=== PATIENT | female | born 1995 | race Caucasian/White ===

== ENCOUNTER → 2021-01-20 16:08 | Outpatient (CLI) | payer OTHER, SELFPAY ==
[2021-01-20 14:35] VITALS: BMI 29.3
[2021-01-20 16:47] LABS: Absolute Lymphocyte Count 2.28 X10^3/uL (0.83-4.51); Absolute Neutrophil Count 5.8 X10^3/uL (2.0-7.7); Basophil# 0.04 X10^3/uL; Basophil% 0.4 % (0-1); Eosinophil# 0.48 X10^3/uL; Eosinophils% 5.1 % (0-5); Hematocrit 38.7 % (37-47); Hemoglobin 13.1 g/dL (12.0-15.0); Lymphocyte # 2.28 X10^3/ul (0.83-4.51); Lymphocyte % 24.4 % (19-41); Mean Corp Hgb Conc 33.9 g/dL (32-36); Mean Corpuscular Volume 85.8 fL (81-99); Mean Platelet Vol. 9.7 fl (6.2-12.0); Monocyte# 0.74 X10^3/uL; Monocyte% 7.9 % (0-10); NRBC Flagged by Analyzer 0 % (0-5); Neutrophil # 5.78 X10^3/uL (2.7-7.7); Neutrophil % 61.9 % (47-70); Platelet Count 250 K/mm3 (150-450); RBC Distribution Width CV 12.5 % (11.6-14.6); RBC Distribution Width SD 39.2 fl (35.1-43.9); Red Blood Count 4.51 M/mm3 (4.2-5.4); White Blood Count 9.4 K/mm3 (4.4-11.0)
[2021-01-21 16:33] LABS: HIV - WCH Non-Reactive (Nonreactive); Hepatitis B Surface Antigen Non-Reactive (Nonreactive); Hepatitis C Antibody Non-Reactive (Nonreactive); Rubella IgG Reactive (Nonreactive); Syphilis Antibodies Non-reactive
== END ==
PROVIDERS: PCP Family Medicine; Referring Provider Obstetrics & Gynecology; Visit Provider Obstetrics & Gynecology
DX: Z34.00 Encounter for supervision of normal first pregnancy, unspecified trimester (principal)
CPT/HCPCS: 36415; 85025; 86703; 86762; 86780; 86803; 86850; 86900; 86901; 87340

== ENCOUNTER → 2021-01-20 | Outpatient (CLI) | payer OTHER, SELFPAY ==
[2021-01-20 14:35] VITALS: BMI 29.3
[2021-01-20 19:21] LABS: Amphetamine Urine VISTA NEGATIVE (<1000 ng/mL); Barbiturate Urine VISTA NEGATIVE (< 200 ng/mL); Benzodiazepine Urine VISTA NEGATIVE (< 200 ng/mL); Cocaine Urine VISTA NEGATIVE (< 300 ng/mL); Ecstacy Urine VISTA NEGATIVE (< 500 ng/mL); Methadone Urine VISTA NEGATIVE (< 300 ng/mL); PCP Urine VISTA NEGATIVE (< 25 ng/mL); THC Urine VISTA NEGATIVE (< 50 ng/mL); Vista UDS pH Range 5
[2021-01-23 03:07] LABS: Chlamydia By Nucleic Acid AMP Negative (Negative)
[2021-01-23 07:49] LABS: Gonococcus By Nucleic Acid AMP Negative (Negative)
== END | disposition home or self-care (01) ==
PROVIDERS: PCP Family Medicine; Referring Provider Obstetrics & Gynecology; Visit Provider Obstetrics & Gynecology
DX: Z34.00 Encounter for supervision of normal first pregnancy, unspecified trimester (principal)
CPT/HCPCS: 80307; 87077; 87086; 87088; 87186; 87491; 87591

== ENCOUNTER → 2021-02-05 | Outpatient (CLI) | payer OTHER, SELFPAY | END | disposition home or self-care (01) | LOC: LABSPEC 16:25 | PROVIDERS: PCP Family Medicine; Visit Provider Nurse Practitioner Women's Health | DX: N89.8 Other specified noninflammatory disorders of vagina (principal) | CPT/HCPCS: 87070; 87077; 87205 ==

== ENCOUNTER → 2021-06-02 08:48 | Outpatient (CLI) | payer OTHER, SELFPAY ==
[2021-06-02 09:07] LABS: Absolute Lymphocyte Count 1.63 X10^3/uL (0.83-4.51); Absolute Neutrophil Count 5.6 X10^3/uL (2.0-7.7); Basophil# 0.03 X10^3/uL; Basophil% 0.4 % (0-1); Eosinophil# 0.55 X10^3/uL; Eosinophils% 6.4 % (0-5); Hematocrit 34.6 % (37-47); Hemoglobin 11.7 g/dL (12.0-15.0); Lymphocyte # 1.63 X10^3/ul (0.83-4.51); Lymphocyte % 19.1 % (19-41); Mean Corp Hgb Conc 33.8 g/dL (32-36); Mean Corpuscular Hgb 28.9 pg (27.0-32.0); Mean Corpuscular Volume 85.4 fL (81-99); Mean Platelet Vol. 9.8 fl (6.2-12.0); Monocyte# 0.64 X10^3/uL; Monocyte% 7.5 % (0-10); NRBC Flagged by Analyzer 0 % (0-5); Neutrophil # 5.62 X10^3/uL (2.7-7.7); Neutrophil % 65.9 % (47-70); Platelet Count 246 K/mm3 (150-450); RBC Distribution Width CV 12.2 % (11.6-14.6); Red Blood Count 4.05 M/mm3 (4.2-5.4); White Blood Count 8.5 K/mm3 (4.4-11.0)
[2021-06-02 09:27] LABS: Glucose Challenge Gest 1H 50g 108 mg/dL (70-140)
== END ==
PROVIDERS: PCP Family Medicine; Referring Provider Obstetrics & Gynecology; Visit Provider Obstetrics & Gynecology
DX: Z13.1 Encounter for screening for diabetes mellitus (principal); Z3A.28 28 weeks gestation of pregnancy
CPT/HCPCS: 36415; 82950; 85025

== ENCOUNTER 2021-08-27 19:20 | Inpatient (IN) | payer OTHER, SELFPAY ==
[2021-08-27 18:55] VITALS: BMI 36.6
[2021-08-27 19:01] VITALS: BP 134/63; PULSE 76; TEMP 36.9; O2SAT 99
[2021-08-27 19:22] LABS: ROM Internal Control Test YES-OK TO RESULT pt. (Internal QC); ROM Patient Test POSITIVE (Negative)
[2021-08-27 19:49] VITALS: TEMP 36.7
[2021-08-27 19:50] VITALS: BP 130/87; PULSE 104
[2021-08-27] MEDS: Lactated Ringers 1,000 ML 50 ML IV (20:01)
--- NOTE | 2021-08-27 20:37 | HP.PCM.OB_ITS ---
HPI - General General Date of Admission: 08/27/21 HPI Narrative HOLGER SOUTH, is a 25 y/o @ 40 weeks 1 day who presents to L&D with spontaneous rupture of membranes that started at 1730 today. She denies vaginal bleeding or decreased movement Maternal Data Information VITALIY Calculator Estimated Delivery Date Method Current WG Current Estimate 08/26/21 LMP (Certain) 40w 1d PFSH PFSH Medical History Group B streptococcal infection in mother during Home Medications prenat.vits,juan,dxa-dosy-ohzcl 1 tab PO DAILY 01/06/21 [History Last Taken 08/27/21 09:00] Allergy/AdvReac Type Severity Reaction Status Date / Time No Known Allergies Allergy Verified 07/23/21 11:18 Family History Father Cancer melanoma-remission Social History adopted: No household members: spouse current occupational status: employed 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[place] pets and animals: Yes (avoid litter box) pets and animals: cat(s) and dog(s) Smoking Status: Never smoker alcohol intake: never substance use type: does not use History 1 Elective abortions Hx Para 0 Spontaneous abortions Hx # Term Pregnancies Ectopic pregnancies Hx # Pregnancies Multiple births # of living children Visit Details Expected Delivery Route/Plan Labor Preferences- CB/BF classes: yes labor support person: Khanh labor intervention preferences: [] pain management options preferred: epidural cut cord/dad catch: yes : yes PP control planned: discussed discussed possible routes of delivery and associated risks: [] special requests: [] Plans Covid status: non immune, counseled regarding risk of covid in vs vaccination and declined vaccination Flu vaccine: declined Tdap vaccine: given Rhogam: NA LARC form signed: yes movement and labor precautions reviewed. Problem list reviewed and updated with the most current plan of care details and appropriate orders placed. Relevant counseling for the gestational age provided. Continue routine care and follow up unless otherwise noted in visit notes/problem list details OB Flowsheet Initial Weight: 160 lb Date -?-?-?-?-?-?-?-?-?-?-?-?- EGA Weight BP Urine Prot -?-?-?-?-?-?-?-?-?-?-?-?- Glucose FHR FuHt Pres Dilation -?-?-?-?-?-?-?-?-?-?-?-?- Effaced St Visit Note 01/20/21 -?-?-?-?-?-?-?-?-?--?-?-?- 8w 6d 160 lb 6 oz (+6 oz) 112/64 -?-?-?-?-?-?-?-?-?-?-?-?- 175 -?-?-?-?-?-?-?-?-?-?-?-?- GP - CRL 24mm co nsistent with LMP 02/05/21 -?-?-?-?-?-?-?-?-?-?-?-?- 11w 1d 161 lb 8 oz (+1 lb 8 oz) 110/60 Negative -?-?-?-?-?-?-?-?-?-?-?-?- Negative 160 -?-?-?-?-?-?-?-?-?-?-?-?- MH-increase yell ow discharge without bleeding, irritation or odor. Normal DC on exam. Comp vag culture sent-call positive. Live IUP on brief US 02/20/21 -?-?-?-?-?-?-?-?-?-?-?-?- 13w 2d 160 lb 4 oz (+4 oz) 120/66 Negative -?-?-?-?-?-?-?-?-?-?-?-?- Negative 150 -?-?-?-?-?-?-?-?-?-?-?-?- GP - no cramping or bleeding. Anatomy scan ordered. Denies complaints. 03/17/21 -?-?-?-?-?-?-?-?-?-?-?-?- 16w 6d 163 lb (+3 lb) 102/86 Negative -?-?-?-?-?-?-?-?-?-?-?-?- Negative 140 -?-?-?-?-?-?-?-?-?-?-?-?- SM- no vb lisethi ng. 04/18/21 -?-?-?-?-?-?-?-?-?-?-?-?- 21w 3d 171 lb (+11 lb) 106/66 Negative -?-?-?-?-?-?-?-?-?-?-?-?- Negative 135 -?-?-?-?-?-?-?--?-?-?-?-?- SM- no vb lof go od fm 05/16/21 -?-?-?-?-?-?-?-?-?-?-?-?- 25w 3d 180 lb 8 oz (+20 lb 8 oz) 104/62 Negative -?--?-?-?-?-?-?-?-?-?-?-?- Negative 145 24 -?-?-?-?-?-?-?-?-?-?-?-?- JV- GCT ordered, no complaints other than some left upper quadrant tenderness and round ligament pain 06/02/21 -?-?-?-?-?-?-?-?-?-?-?-?- 27w 6d 179 lb 2 oz (+19 lb 2 oz) 120/60 Trace -?-?-?-?-?-?-?-?-?-?-?-?- Negative 152 27 -?-?-?-?-?-?-?-?-?-?-?-?- MH-No VB, LOF. G ood FM. 28 wk labs, LARC and tdap. 06/18/21 -?-?-?-?-?-?-?-?-?-?-?-?- 30w 1d 185 lb (+25 lb) 122/82 -?-?-?-?-?-?-?-?-?-?-?-?- 150 30 -?-?-?-?-?-?-?-?-?-?-?-?- Sm- no vb lof go od fm no reuglar ctx 07/04/21 -?-?-?-?-?-?--?-?-?-?-?-?- 32w 3d 188 lb 2 oz (+28 lb 2 oz) 120/80 Negative -?-?-?-?-?-?-?-?-?-?-?-?- Negative 145 31 -?-?-?-?-?-?-?-?-?-?-?-?- JV- no lof, vagi nal bleeding, or dec fm. passed 1 hr gct. 07/23/21 -?-?-?-?-?-?-?-?-?-?-?-?- 35w 1d 194 lb (+34 lb) 128/76 Negative -?-?-?-?-?-?-?-?-?-?-?-?- Negative 157 35 -?-?-?-?-?-?-?-?-?-?-?-?- -No Vb, LOF. G ood FM. 07/31/21 -?-?-?-?-?-?-?-?-?-?-?-?- 36w 2d 197 lb (+37 lb) 120/82 Negative -?-?-?-?-?-?-?-?-?-?-?-?- Negative 145 36 Cephalic 1 -?-?-?-?-?-?-?-?-?-?-?-?- 70 -1 Sm- no vb lof good fm no regular ctx 08/07/21 -?-?-?-?-?-?-?-?-?-?-?-?- 37w 2d 198 lb (+38 lb) 112/86 -?-?-?-?-?-?-?-?-?-?-?-?- 160 37 Cephalic 1 -?-?-?-?-?-?-?-?-?-?-?-?- 70 -1 Sm-0 no vb lof good fm no regular ctx 08/14/21 -?-?-?-?-?-?-?-?-?-?-?-?- 38w 2d 203 lb (+43 lb) 126/88 Negative -?-?-?-?-?-?-?-?-?-?-?-?- Negative 150 38 Cephalic 2 -?-?-?-?-?-?-?-?-?-?-?-?- 80 -1 SM- no vb lof good fm no regular ctx 08/21/21 -?-?-?-?-?-?-?-?-?-?-?-?- 39w 2d 202 lb (+42 lb) 132/82 Negative -?-?-?-?-?-?-?-?-?-?-?-?- Negative 145 39 Cephalic 2 -?-?-?-?-?-?-?-?-?-?-?-?- 80 -1 Sm- no vb lof good fm no regular ctx 08/27/21 -?-?-?-?-?-?-?-?-?-?-?-?- 40w 1d 200 lb 2.876 oz (+40 lb 2.876 oz) 134/63 130/87 -?-?-?-?-?-?-?-?-?-?-?-?- -?-?-?-?-?-?-?-?-?-?-?-?- NST FHR Rate Baby A Baseline: 140 Variability:: Moderate Accelerations:: 15 x 15 Decelerations:: None NST Reactive:: Yes FHR Category:: Category I Uterine Activity:: q 2-3 min ROS Constitutional Constitutional: Denies change in weight, fatigue, fever(s), headache(s), poor appetite or weakness Eyes Eyes: Denies blurry vision, change in vision, seeing flashes or spots in vision ENT HEENT: Denies dizziness, headache(s), loss taste/smell or sore throat Cardiovascular Cardiovascular: Denies chest pain, dizziness, dyspnea, irregular heart rhythm, leg edema, palpitations, rapid heart rate or vomiting Respiratory/Chest Respiratory/Chest: Denies chest tightness, cough, dyspnea or breast pain Gastrointestinal Gastrointestinal: Denies abdominal pain, anorexia, constipation, cramping, diarrhea, hemorrhoids, vomiting or weight changes Genitourinary Genitourinary: Denies dysuria, flank pain, genital lesions, genital pain, urinary frequency or urinary urgency Musculoskeletal Musculoskeletal: Denies back pain, difficulty walking, joint pain, limited range of motion, muscle cramps or numbness Integumentary Integumentary: Denies lesions or unusual bruising Neurologic Neurologic: Denies abnormal movements, abnormal speech, dizziness, numbness, seizure-like activity or syncope Psychiatric Psychiatric: Denies anxiety, behavioral changes, change in appetite, change in libido, cognitive impairment, confusion, depression, difficulty concentrating, hallucinations or suicidal thoughts Endocrine Endocrinology: Denies excessive sweating, polydipsia or polyuria Hematologic/Lymphatic Hematologic/Lymphatic: Denies easy bleeding, easy bruising or lymphadenopathy Allergic/Immunologic Allergic/Immunologic: Denies itchy eyes, lip swelling, seasonal rhinorrhea, rhinitis, throat swelling, tongue swelling, eczemia, wheezing or asthma Vital Signs Vital Signs Vital Signs: 08/27/21 19:01 08/27/21 19:49 08/27/21 19:50 Temperature 98.4 F 98.0 F Temperature Source Temporal Temporal Pulse Rate 76 104 H Blood Pressure 134/63 H 130/87 H BP Systolic 134 130 BP Diastolic 63 87 Pulse Ox 99 Weight Weight: 200 lb 2.876 oz Body Mass Index (BMI) 36.6 Physical Exam Const alert, oriented x3, no apparent distress and healthy appearing General Appearance: cooperative; Negative for anxious HEENT normocephalic Face and Sinus: normal facial exam Eyes EOMs intact bilaterally and no scleral icterus General Eye: normal appearance of both eyes Neck full ROM and supple Lymph Lymphatic: no lymphadenopathy noted Chest Chest: abnormal inspection of the chest Resp normal respiratory effort Effort and Inspection: able to speak in complete sentences Cardio regular rate GI soft to palpation and non-tender Inspection: gravid Palpation: soft; Negative for tender external exam normal Amniotic Fluid: ROM+plus and other cx is 2/90/-2 Back/Spine no CVA tenderness Extremity normal to inspection, full ROM and no clubbing, cyanosis or edema General Extremity: Negative for calf tenderness or edema Skin Lesions: no lesions Rashes: no rashes Psych mental status grossly normal Labs Labs Labs: Blood Type B POSITIVE Antibody Screen NEGATIVE Hct 34.6 % (37-47) L Hgb 11.7 g/dL (12.0-15.0) L Syphilis Total Ab Non-reactive Rubella IgG Antibody Reactive (Nonreactive) Hep Bs Antigen Non-Reactive (Nonreactive) Chlamydia DNA (VISHAL) Negative (Negative) Neisseria gonorrhoeae DNA (VISHAL) Negative (Negative) HIV 1&2 Antibody Non-Reactive (Nonreactive) Glucose 1 Hr 50 gm 108 mg/dL (70-140) Assessment & Plan (1) Group B streptococcal infection in mother during : COMMENT: treat in labor. Discussed. FOB was hospitalized X 2 wk after for GBS infection so concern for them. Reassured. (2) : QUALIFIERS: Weeks of gestation: 39 weeks Qualified Code(s): Z3A.39 - 39 weeks gestation of COMMENT: declines NIPT, carrier, and ntd screen. Anatomy US normal (3) Supervision of normal first : QUALIFIERS: Trimester: first trimester Qualified Code(s): Z34.01 - Encounter for supervision of normal first , first trimester COMMENT: PRR VITALIY 08/26/21 girl anu Spouse: Khanh PLAN: Patient presents IOL, plan management for with pitocin after 6 hrs from SROM if no cervical change Pain management: plans epidural. GBS positive- pen G ordered . Management of any complications: none I have reviewed the [facility] and made any clinically relevant updates.
[2021-08-27 20:40] LABS: Absolute Lymphocyte Count 2.46 X10^3/uL (0.83-4.51); Absolute Neutrophil Count 5.1 X10^3/uL (2.0-7.7); Basophil# 0.02 X10^3/uL; Basophil% 0.2 % (0-1); Eosinophil# 0.39 X10^3/uL; Eosinophils% 4.5 % (0-5); Hematocrit 34.8 % (37-47); Hemoglobin 11.3 g/dL (12.0-15.0); Lymphocyte # 2.46 X10^3/ul (0.83-4.51); Lymphocyte % 28.5 % (19-41); Mean Corp Hgb Conc 32.5 g/dL (32-36); Mean Corpuscular Hgb 25.2 pg (27.0-32.0); Mean Corpuscular Volume 77.7 fL (81-99); Mean Platelet Vol. 11.5 fl (6.2-12.0); Monocyte# 0.66 X10^3/uL; Monocyte% 7.6 % (0-10); NRBC Flagged by Analyzer 0 % (0-5); Neutrophil # 5.07 X10^3/uL (2.7-7.7); Neutrophil % 58.9 % (47-70); Platelet Count 280 K/mm3 (150-450); RBC Distribution Width CV 14.4 % (11.6-14.6); RBC Distribution Width SD 40.3 fl (35.1-43.9); Red Blood Count 4.48 M/mm3 (4.2-5.4); White Blood Count 8.6 K/mm3 (4.4-11.0)
[2021-08-27] MEDS: hydrOXYzine PAM 25 MG Capsule 50 MG PO (20:59)
[2021-08-27] MEDS: Lactated Ringers 500 ML 999 ML IV (23:35)
[2021-08-27 23:39] VITALS: BP 136/86; PULSE 88; TEMP 36.3
[2021-08-28] VITALS (65 sets, daily range): BP systolic 113–143; BP diastolic 56–95; PULSE 58–202; RESP 16–20; TEMP 36.3–37.3; O2SAT 82–100
[2021-08-28] MEDS: fentaNYL-bupivacaine (epidural) 100 ML BAG EPIDURAL ×4 (00:33→14:53)
[2021-08-28] MEDS: Oxytocin 30 units/NS 500 ml 30 UNITS/500 ML IV.SOLN IV (02:06)
[2021-08-28] MEDS: Lactated Ringers 1,000 ML 200 ML IV ×3 (02:09→14:52)
[2021-08-28] MEDS: Lactated Ringers 500 ML 999 ML IV ×2 (03:33→14:01)
--- NOTE | 2021-08-28 06:51 | PCM.PN.BLA ---
Progress Note pt is comfortable with Epidural. no feeling pressure. She is due for cx check current tracing: FHT: Moderate variability reactive no decelerations category I tracing [place]: q2 min Contractions cx: 8/100/0-+1 station reviewed tracing abnormalities since last note:cat1 A/P: continue pitocin anticipate soon
[2021-08-28] MEDS: 0.9% Saline Lock 10 ML Syringe IV (09:55)
--- NOTE | 2021-08-28 13:14 | PCM.PN.BLA ---
Progress Note patient is pushing and doing well current tracing: FHT: Moderate variability reactive but with variable decelerations category II tracing [place]: q 2 min Contractions A/P: continue pushing, anticipate vs Vacuum assisted help if needed for maternal exhaustion.
[2021-08-28] MEDS: Ondansetron 4 MG/2 ML Vial IV (13:30)
[2021-08-28] MEDS: Sodium Citrate/Citric Acid 30 ML UDC PO (16:15)
--- NOTE | 2021-08-28 16:25 | PCM.PN.BLA ---
Progress Note pt has been pushing now on and off since 11:30 (5 hrs on and off) She consents for a vacuum extraction. The risks, benefits ,and alternatives were discussed. The vagina and perineum were prepped with betadine. The position of the head was noted to be in the OP position. The kiwi vacuum was applied posterior to the superior fontanelle to aid in head flexion. 3 pulls were performed. After the first pull a pop off occurred. during the second pull resulted in a small vaginal tear without descent of the head. A good suction was not achieved. During the 3rd pull (new vacuum used) the device would not suction with a delicate pull x 3. At that time she was offered a section and consented. moving to OR now to proceed with section.
--- NOTE | 2021-08-28 16:44 | PLAC_PTH ---
PATIENT: HOLGER SOUTH LOC: WP U#:[id number] AGE/SX: 25/F ROOM: WP006 RE08/27/[address]: Dr. Jessica Esteban DO : 1995 BED: 1 DIS: 08/30/2021 SPEC #: [id number] RECD: 08/28/21 18:37 STATUS: ZEFERINO BRANDI #: [id number] DOROTHY: 08/28/21 16:[address]: Jessica Esteban DEPT: SURGICAL PATHOLOGY RECD BY: Bonny Thornton ENTERED: 08/29/21 09:41 SP TYPE: PLACENTA OTHR DR: Erika Stokes Tissues: Placenta, NOS Procedures: Surgery Specimen Level V HEADER OPERATION: Primary section PRE-OP DIAGNOSIS: Rupture of membranes TISSUE SUBMITTED: Placenta MICROSCOPIC DIAGNOSIS Placenta: Placental disc - third trimester placenta (552 gm). - Focal areas of increased intervillous and perivillous fibrin deposition. Membranes ? focal minimal acute inflammation. Umbilical cord - three blood vessels and no pathologic diagnosis. SUE:gino 09/02/2021 MICROSCOPIC DESCRIPTION Slides are reviewed. GROSS DESCRIPTION SPECIMEN: PLACENTA / CLINICAL INFORMATION: A. Weight: 3.11 kg B. Gestational Age: 40 weeks C. Sex: Female PLACENTAL WEIGHT (POST FIXATION): 552 gm PLACENTAL DIMENSIONS: 17 x 16 x 3 cm PLACENTAL SHAPE: Usual ovoid PLACENTAL WEIGHT FOR GESTATIONAL AGE: Within 10-99th percentile MEMBRANES - Present A. Insertion: Marginal B. Site of rupture from edge: Fragmented and distance of rupture cannot be assessed. C. Color of membrane: Benítez, mucoidy D. Abnormalities: None UMBILICAL CORD - Present A. Color: Benítez-beauchamp B. Insertion: Central C. Length: 29 cm D. Diameter: 1.2 cm E. Number of vessels: Three F. Abnormalities: None PLACENTAL DISC - Present A. Color of surface: Benítez-beauchamp B. surface abnormalities: None C. Maternal cotyledons: Intact with minimal tears D. Attached retro placental clot: No clot E. Cut surface: Dark red and spongy F. Lesions: Sections reveal a benítez, indurated lesion measuring 1 cm in greatest dimension. G. Separate clot: Absent SECTIONS SUBMITTED: 1. Membrane roll 2. Cord, maternal end 3. Cord, end 4. Placental disc, and maternal surfaces 5. Placental disc, and maternal surfaces 6. Placental disc, and maternal surfaces, lesion SJ:gino 09/01/2021 TC:5 CPT: 79344
--- NOTE | 2021-08-28 17:19 | OP.PCM_ITS ---
Assessment & Plan (1) Group B streptococcal infection in mother during : COMMENT: treat in labor. Discussed. FOB was hospitalized X 2 wk after for GBS infection so concern for them. Reassured. (2) Supervision of normal first : QUALIFIERS: Trimester: first trimester Qualified Code(s): Z34.01 - Encounter for supervision of normal first , first trimester COMMENT: PRR VITALIY 08/26/21 girl anu Spouse: Khanh (3) : QUALIFIERS: Weeks of gestation: 39 weeks Qualified Code(s): Z3A.39 - 39 weeks gestation of COMMENT: declines NIPT, carrier, and ntd screen. 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 A vacuum extraction was performed and failed after 3 pulls. An JEMIMA was announced due to terminal bradycardia that started at 1637. Epidural anesthesia was running and ketamine was given for supplemental support. The richardson catheter was in place and was noted to be blood tinged prior to starting the procedure.. The patient was placed in the dorsal supine position with leftward tilt. Patient was prepped and draped in the normal sterile fashion with a betadine splash. Pfannenstiel skin incision was made with the scalpel and carried through to the underlying layer of fascia with the scalpel. Fascia was nicked in the midline and the incision extended laterally. The rectus bellies were . The peritoneum was entered digitally. The incision was stretched and a low transverse uterine incision was made with the scalpel. The infant's head was low in the pelvis. With one hand slipped low into the pelvis and with a gentle tug, the head was delivered atraumatically followed by the anterior and posterior shoulders without complication the rest of the delivered. The cord was clamped and cut and the was handed off to awaiting nurse. The placenta was delivered spontaneously immediately following and was noted to be intact and have a three- vessel cord. The uterus was exteriorized cleared of all clots and debris, and the incision was closed in a double layer closure using #1 Vicryl and #1 Monocryl. The ovaries and fallopian tubes were noted to be within normal limits. The uterus was returned to the maternal abdomen and gutters were cleared of all clots and debris. The peritoneum was closed with 3-0 Monocryl in a running fashion. Gloves were changed prior to fascial closure. Fascia was closed with 0 PDS in a running fashion. Subcutaneous tissue was copiously irrigated and the skin was closed with 3-0 Monocryl in a subcuticular fashion. Mepilex dressing was applied without complication. Patient was taken to recovery in stable condition. It was discussed with the patient that based on the clinical information obtained during this encounter, combined with her history, at this time I would recommend consideration for repeat section for future deliveries, however is not contraindicated if further pregnancies are desired. Presentation: Positive for Vertex Amniotic Fluid Description: Clear Placental Delivery Description: Manual Removal Placenta Disposition: Sent to Pathology Cord Vessel Description: 3 Vessels Cord Entanglement: None Cord Gases: ABG and VBG Infant A Gender: Female (1 minute): 9 (5 minute): 9 Delayed Cord Clamping: No Complications Complications: no complications Multi Select Codes Urinary/Genital Urinary/Genital CPT Codes: 64549 Delivery [facility]
--- NOTE | 2021-08-28 17:36 | PCM.DC ---
Discharge Instructions Diet Discharge Diet: No restrictions Activity Discharge Activity: May Not Drive (for 2 weeks or while taking narcotic pain medications.), May Shower and May Take a Tub Bath (in 7 days.) May resume sexual activity in: 4-6 weeks Weight Bearing Status: Full weight bearing Lifting Restrictions: 20 pounds Dressing / Incision Call your doctor if your incision/area has: Continuous Slow Oozing, Sudden Increased Bleeding, Increased Pain/ Swelling, Increased Redness and Foul Smelling Discharge Call your doctor if you observe: Fever of 101 or Higher and Using more than 1 pad per hour Suture Line Care: Avoid Pulling/Pushing and Avoid Pinching/Bending Cleanse incision/area with: Soap & Water and Keep Dressing Clean & Dry Follow Up Care Please Follow Up With: Jessica Esteban DO When: Call [phone] to make an appointment for an incision check in 1-2 weeks. Test Results: Test results from this visit will be discussed in further detail at your follow-up appointment, if applicable. Discharge Plan Admission Admit Date/Time: 08/27/21 19:20 Primary Reason for Your Visit: section Attending Provider: Jessica Esteban Primary Care Provider: Erika Stokes Discharge Orders/Prescriptions Prescriptions: New docusate sodium [Colace] 100 mg capsule 100 mg PO DAILY 14 Days Qty: 14 RF: 0 ibuprofen 600 mg tablet 600 mg PO Q6H PRN (Reason: moderate pain (scale score 5-6)) 7 Days Qty: 30 RF: 0 oxycodone-acetaminophen [Percocet] 5-325 mg tablet 1 tab PO Q4H PRN (Reason: pain (scale score 7-10)) 7 Days Qty: 30 RF: 0 Continued prenat.vits,juan,ziz-bgct-gonkv Tablet 1 tab PO DAILY RF: 0 Referrals / Follow Up: Erika Stokes [Primary Care Provider] - Disposition Disposition (needs filled in before D/C Order can be placed): Home, Self Care
[2021-08-28] MEDS: Cefazolin 2 GM in 0.9% Normal Saline 100 ML IV (18:00)
[2021-08-28] MEDS: Oxytocin 30 units/NS 500 ml 30 UNITS/500 ML IV.SOLN 167 UNITS IV (18:00)
[2021-08-28] MEDS: Ketorolac 30 MG/ML Syringe IV (18:37)
[2021-08-28 18:40] LABS: Pathology Specimen OB SEE PATHOLOGY REPORT
[2021-08-28] MEDS: Acetaminophen 500 MG Tablet 1000 MG PO (19:10)
[2021-08-28] MEDS: Lactated Ringers 1,000 ML 100 ML IV (21:00)
--- NOTE | 2021-08-28 21:51 | NURSING ---
call placed to [facility] to ask about removing epidural catheter as bleeding appropriate[facility]
--- NOTE | 2021-08-28 22:24 | NURSING ---
epidural catheter removed, blue tip intact.
[2021-08-29] VITALS (8 sets, daily range): BP systolic 116–138; BP diastolic 56–74; PULSE 85–103; RESP 16–18; TEMP 36.1–36.7; O2SAT 96–98
[2021-08-29] MEDS: Acetaminophen 500 MG Tablet 1000 MG PO ×4 (00:25→20:01)
[2021-08-29] MEDS: Ketorolac 30 MG/ML Syringe IV ×3 (00:27→12:34)
[2021-08-29] MEDS: Lactated Ringers 500 ML 999 ML IV (01:30)
[2021-08-29] MEDS: 0.9% Saline Lock 10 ML Syringe IV (01:34)
[2021-08-29] MEDS: Furosemide 40 MG/4 ML Vial IV (01:40)
[2021-08-29 06:55] LABS: Hematocrit 28.4 % (37-47); Mean Corp Hgb Conc 31.7 g/dL (32-36); Mean Corpuscular Hgb 24.8 pg (27.0-32.0); Mean Corpuscular Volume 78.2 fL (81-99); Mean Platelet Vol. 10.9 fl (6.2-12.0); Platelet Count 205 K/mm3 (150-450); RBC Distribution Width CV 14.8 % (11.6-14.6); RBC Distribution Width SD 41.8 fl (35.1-43.9); Red Blood Count 3.63 M/mm3 (4.2-5.4); White Blood Count 12.8 K/mm3 (4.4-11.0)
--- NOTE | 2021-08-29 09:22 | PCM.PN.OB ---
Subjective Subjective Patient doing well without complaints. Tolerating PO. Ambulating and voiding without difficulty. Feeding well. Denies chest pain, shortness of breath, calf pain/swelling, fevers, chills, lightheadedness. Objective Data Objective Data Vital Signs: Vital Signs Temp Pulse Resp BP Pulse Ox 98.0 F 86 18 116/60 96 08/29/21 08:28 08/29/21 08:28 08/29/21 08:28 08/29/21 08:28 08/29/21 08:28 Oxygen Delivery Method Room Air Weight: 200 lb 2.876 oz Body Mass Index (BMI) 36.6 Intake & Output: Intake and Output for Last 24 Hours 08/27/21 08/28/21 08/29/21 23:59 23:59 23:59 Intake Total 105 / 105 5661.42 / 5661.42 1895 / 1895 Output Total 600 / 600 3050 / 3050 100 / 100 Balance -495 / -495 2611.42 / 2611.42 1795 / 1795 Lab / Micro Data Result Diagrams: 08/29/21 06:40 Labs: Laboratory Results - last 24 hr 08/29/21 06:40: WBC 12.8 H, RBC 3.63 L, Hgb 9.0 L, Hct 28.4 L, MCV 78.2 L, MCH 24.8 L, MCHC 31.7 L, RDW Std Deviation 41.8, RDW Coeff of Albert 14.8 H, Plt Count 205, MPV 10.9 Micro: Microbiology 08/27/21 20:15 Nasal Secretion SARS-CoV-2 Antigen (Rapid) - Final ROS Constitutional Constitutional: Denies chills, fatigue, fever(s), poor appetite or weakness Eyes Eyes: Denies blurry vision, change in vision, seeing flashes or spots in vision ENT HEENT: Denies dizziness, headache(s), loss taste/smell or sore throat Cardiovascular Cardiovascular: Denies chest pain, dizziness, dyspnea, irregular heart rhythm, palpitations or rapid heart rate Respiratory/Chest Respiratory/Chest: Denies chest tightness, cough, dyspnea or breast pain Gastrointestinal Gastrointestinal: Denies abdominal pain, constipation or vomiting Genitourinary Genitourinary: Denies dysuria or flank pain Musculoskeletal Musculoskeletal: Denies difficulty walking, joint pain, limited range of motion or numbness Neurologic Neurologic: Denies abnormal movements, abnormal speech, dizziness, numbness, seizure-like activity or syncope Psychiatric Psychiatric: Denies anxiety, behavioral changes, change in appetite, confusion, depression or suicidal thoughts Physical Exam Const alert, oriented x3 and no apparent distress General Appearance: cooperative and comfortable Resp normal respiratory effort Cardio regular rate GI normal to inspection, nondistended, normoactive bowel sounds GI Narrative: uterus is firm below umbilicus Palpation: soft Bimanual Exam - Adnexa, Other: Negative for cul-de-sac fullness Back/Spine no CVA tenderness and thoraco-lumbar ROM normal Extremity normal to inspection, no clubbing, cyanosis or edema, no calf tenderness and no pedal edema Psych mental status grossly normal, thought process normal, cooperative, affect normal, speech normal, activity/motor behavior normal, denies homicidal ideation and denies suicidal ideation Assessment & Plan (1) H/O section: COMMENT: JV- emergent for terminal bradycardia after failed vacuum baby girl Marlys PLAN: s/p LTCS PPD # 1 1. routine post care 2. breast feeding- support given 3. rh positive 4. rubella immune 5. probable dc to home tomorrow.
[2021-08-29] MEDS: Senna/Docusate Sodium 1 Tablet PO (11:19)
[2021-08-29] MEDS: Prenatal Vits Tablet 1 TABLET PO (11:20)
--- NOTE | 2021-08-29 11:37 | NURSING ---
Pt states urinated in shower. will measure next two voids
--- NOTE | 2021-08-29 17:32 | NURSING ---
report receieved from shannan NOVAK. this RN to assume care of pt at this time.
[2021-08-29] MEDS: Ibuprofen 600 MG Tablet PO ×2 (18:02→23:28)
[2021-08-30] MEDS: Acetaminophen 500 MG Tablet 1000 MG PO ×3 (01:29→12:08)
[2021-08-30 01:30] VITALS: BP 143/65; PULSE 91; RESP 16; TEMP 36.1
[2021-08-30] MEDS: Ibuprofen 600 MG Tablet PO ×2 (07:02→12:08)
[2021-08-30 08:43] VITALS: BP 141/64; PULSE 110; RESP 16; TEMP 36.1; O2SAT 96
--- NOTE | 2021-08-30 09:59 | PCM.DC.SUM ---
Providers Date of Admission: 08/27/21 Primary Care Physician: Erika Stokes Reason For Visit: PRIMARY C SECTION Diagnosis Discharge Diagnosis (1) H/O section: Status: Acute Code(s): Z98.891 - History of uterine scar from previous surgery Medications at Discharge Home Medications prenat.vits,juan,uxo-uesj-hjzue 1 tab PO DAILY 01/06/21 docusate sodium [Colace] 100 mg PO DAILY 14 Days #14 cap 08/28/21 ibuprofen 600 mg PO Q6H PRN 7 Days #30 tab 08/28/21 oxycodone-acetaminophen [Percocet] 1 tab PO Q4H PRN 7 Days #30 tab 08/28/21 Hospital Course Operations - ( section ) Summary of Care Provided Minutes Spent on Discharge: 20 Hospital Course: The patient was admitted 08/27 for labor and subsequently underwent an emergency section. She was recovering well on day one and by day 2 was asking for discharge to home. Physical Exam Const alert, oriented x3 and no apparent distress General Appearance: cooperative and comfortable Resp normal respiratory effort Cardio regular rate GI normal to inspection, nondistended, normoactive bowel sounds GI Narrative: uterus is firm below umbilicus. incision is clean, dry, intact Palpation: soft Bimanual Exam - Adnexa, Other: Negative for cul-de-sac fullness Back/Spine no CVA tenderness and thoraco-lumbar ROM normal Extremity normal to inspection, no clubbing, cyanosis or edema, no calf tenderness and no pedal edema Psych mental status grossly normal, thought process normal, cooperative, affect normal, speech normal, activity/motor behavior normal, denies homicidal ideation and denies suicidal ideation Weight / BMI Weight Weight: 200 lb 2.876 oz Body Mass Index (BMI) 36.6 ABG / Lab / Microbiology Data Result Diagrams: 08/29/21 06:40 Microbiology: Microbiology 08/27/21 20:15 Nasal Secretion SARS-CoV-2 Antigen (Rapid) - Final D/C Instructions Discharge Diet: No restrictions May resume sexual activity in: 4-6 weeks Weight Bearing Status: Full weight bearing Call your doctor if your incision/area has: Continuous Slow Oozing, Sudden Increased Bleeding, Increased Pain/ Swelling, Increased Redness and Foul Smelling Discharge Call your doctor if you observe: Fever of 101 or Higher and Using more than 1 pad per hour Suture Line Care: Avoid Pulling/Pushing and Avoid Pinching/Bending Cleanse incision/area with: Soap & Water and Keep Dressing Clean & Dry Please Follow Up With: Jessica Esteban DO When: Call [phone] to make an appointment for an incision check in 1-2 weeks. Meaningful Use Info Meaningful Use Diagnoses (Choose all that apply): None applicable Discharge Plan Admission Admit Date/Time: 08/27/21 19:20 Primary Reason for Your Visit: section Attending Provider: Jessica Esteban Primary Care Provider: Erika Stokes Discharge Orders/Prescriptions Prescriptions: New docusate sodium [Colace] 100 mg capsule 100 mg PO DAILY 14 Days Qty: 14 RF: 0 ibuprofen 600 mg tablet 600 mg PO Q6H PRN (Reason: moderate pain (scale score 5-6)) 7 Days Qty: 30 RF: 0 oxycodone-acetaminophen [Percocet] 5-325 mg tablet 1 tab PO Q4H PRN (Reason: pain (scale score 7-10)) 7 Days Qty: 30 RF: 0 Continued prenat.vits,juan,oce-ivxu-celzg Tablet 1 tab PO DAILY RF: 0 Referrals / Follow Up: Erika Stokes [Primary Care Provider] - Disposition Disposition (needs filled in before D/C Order can be placed): Home, Self Care
[2021-08-30 11:13] VITALS: BP 128/63; PULSE 82; RESP 16; O2SAT 98
[2021-08-30] MEDS: Senna/Docusate Sodium 1 Tablet PO (12:08)
[2021-08-30] MEDS: Prenatal Vits Tablet 1 TABLET PO (12:08)
== END 2021-08-30 12:50 | disposition home or self-care (01) | DRG 788 ==
LOC: WPOUT 19:27 → WP 08-28 08:11
PROVIDERS: Admitting Provider Obstetrics & Gynecology; PCP Family Medicine; Visit Provider Obstetrics & Gynecology
DX: O99.824 Streptococcus B carrier state complicating childbirth (principal); O76 Abnormality in fetal heart rate and rhythm complicating labor and delivery; O62.1 Secondary uterine inertia; Z3A.40 40 weeks gestation of pregnancy; Z37.0 Single live birth; O66.5 Attempted application of vacuum extractor and forceps; O75.81 Maternal exhaustion complicating labor and delivery
CPT/HCPCS: 36415; 59025; 59050; 84112; 85025; 85027; 86850; 86900; 86901; 87426; 88307; 99218; 99251; J7120; A4216; G0378; G0463; J1940; J2405

== ENCOUNTER → 2024-02-11 | Outpatient (CLI) | payer OTHER, SELFPAY ==
[2024-02-11 10:18] LABS: Absolute Lymphocyte Count 1.83 X10^3/uL (0.83-4.51); Absolute Neutrophil Count 6.4 X10^3/uL (2.0-7.7); Basophil# 0.04 X10^3/uL; Basophil% 0.4 % (0-1); Eosinophil# 0.45 X10^3/uL; Eosinophils% 4.8 % (0-5); Hematocrit 40.5 % (37-47); Hemoglobin 13.7 g/dL (12.0-15.0); Lymphocyte # 1.83 X10^3/ul (0.83-4.51); Lymphocyte % 19.4 % (19-41); Mean Corp Hgb Conc 33.8 g/dL (32-36); Mean Corpuscular Hgb 28.4 pg (27.0-32.0); Mean Corpuscular Volume 83.9 fL (81-99); Mean Platelet Vol. 9.6 fl (6.2-12.0); Monocyte# 0.65 X10^3/uL; Monocyte% 6.9 % (0-10); NRBC Flagged by Analyzer 0 % (0-5); Neutrophil # 6.42 X10^3/uL (2.7-7.7); Neutrophil % 68.2 % (47-70); Platelet Count 282 K/mm3 (150-450); RBC Distribution Width CV 13.1 % (11.6-14.6); RBC Distribution Width SD 39.8 fl (35.1-43.9); Red Blood Count 4.83 M/mm3 (4.2-5.4); White Blood Count 9.4 K/mm3 (4.4-11.0)
[2024-02-11 11:25] LABS: HIV - WCH Non-Reactive (Nonreactive); Hepatitis B Surface Antigen Non-Reactive (Nonreactive); Hepatitis C Antibody Non-Reactive (Nonreactive); Rubella IgG Reactive (Nonreactive); Syphilis Antibodies Non-reactive
[2024-02-11 11:35] LABS: Hemoglobin A1c 4.8 % (3.8-5.6)
[2024-02-15 22:07] LABS: Chlamydia By Nucleic Acid AMP Negative (Negative); Gonococcus By Nucleic Acid AMP Negative (Negative)
== END | disposition home or self-care (01) ==
PROVIDERS: Referring Provider Advanced Practice Midwife; Visit Provider Advanced Practice Midwife
DX: O99.210 Obesity complicating pregnancy, unspecified trimester (principal); Z3A.00 Weeks of gestation of pregnancy not specified
CPT/HCPCS: 36415; 83036; 85025; 86703; 86762; 86780; 86803; 86850; 86900; 86901; 87086; 87340; 87491; 87591; 87624; 88175; G0145

== ENCOUNTER → 2024-06-05 | Outpatient (CLI) | payer OTHER, SELFPAY ==
[2024-06-05 11:13] LABS: Absolute Lymphocyte Count 1.24 X10^3/uL (0.83-4.51); Absolute Neutrophil Count 5.6 X10^3/uL (2.0-7.7); Basophil# 0.03 X10^3/uL; Basophil% 0.4 % (0-1); Eosinophil# 0.58 X10^3/uL; Eosinophils% 7.2 % (0-5); Hematocrit 40.1 % (37-47); Hemoglobin 13.4 g/dL (12.0-15.0); Lymphocyte # 1.24 X10^3/ul (0.83-4.51); Lymphocyte % 15.4 % (19-41); Mean Corp Hgb Conc 33.4 g/dL (32-36); Mean Corpuscular Hgb 29.1 pg (27.0-32.0); Mean Corpuscular Volume 87.2 fL (81-99); Mean Platelet Vol. 10.5 fl (6.2-12.0); Monocyte# 0.57 X10^3/uL; Monocyte% 7.1 % (0-10); NRBC Flagged by Analyzer 0 % (0-5); Neutrophil # 5.61 X10^3/uL (2.7-7.7); Neutrophil % 69.5 % (47-70); Platelet Count 254 K/mm3 (150-450); RBC Distribution Width CV 13.2 % (11.6-14.6); RBC Distribution Width SD 41.3 fl (35.1-43.9); White Blood Count 8.1 K/mm3 (4.4-11.0)
[2024-06-05 11:18] LABS: Glucose Challenge Gest 1H 50g 97 mg/dL (70-140)
[2024-06-05 11:52] LABS: HIV - WCH Non-Reactive (Nonreactive); Syphilis Antibodies Non-reactive
== END | disposition home or self-care (01) ==
LOC: BWCLAB 08:21
PROVIDERS: Referring Provider Obstetrics & Gynecology; Visit Provider Obstetrics & Gynecology
DX: Z13.1 Encounter for screening for diabetes mellitus (principal); O09.90 Supervision of high risk pregnancy, unspecified, unspecified trimester; Z3A.00 Weeks of gestation of pregnancy not specified
CPT/HCPCS: 36415; 82950; 85025; 86703; 86780

== ENCOUNTER → 2024-08-16 | Outpatient (CLI) | payer OTHER, SELFPAY | END | disposition home or self-care (01) | LOC: LABSPEC 16:52 | PROVIDERS: Visit Provider Obstetrics & Gynecology | DX: O09.90 Supervision of high risk pregnancy, unspecified, unspecified trimester (principal); Z3A.00 Weeks of gestation of pregnancy not specified | CPT/HCPCS: 87077; 87081; 87186 ==

== ENCOUNTER 2024-08-25 00:05 | Outpatient (CLI) | payer OTHER, SELFPAY ==
[2024-08-25 00:15] VITALS: BMI 38.7
[2024-08-25 00:44] LABS: Color, Urine Yellow (Yellow); Glucose, Dipstick Normal (Normal); Ketone-Dipstick Negative (Negative); Leukocyte Esterase-Dipstick 500 /ul (Negative); Nitrite-Dipstick Negative (Negative); Occult Blood-Urine 10 /ul (Negative); Protein-Dipstick 15 mg/dl (Negative); Specific Gravity, Urine 1.015 (1.002-1.030); Urine Bilirubin Dipstick Negative (Negative); Urine Clarity Sl. Cloudy (Clear); Urine Urobilinogen Normal (Normal); Urine pH 6.5 (5.0 - 8.0)
[2024-08-25 00:52] LABS: Bacteria 2+ /hpf (None Seen); Mucous, Urine RARE /hpf (<or=2+); Red Blood Cells-Urine 0 SEEN /hpf (0-5); Squamous Epithelial Cells - UA 5-10 SEEN /hpf (5-10); White Blood Cells >100 SEEN /hpf (0-5)
[2024-08-25 01:03] LABS: ROM Internal Control Test YES-OK TO RESULT pt. (Internal QC); ROM Patient Test Negative (Negative); Record Kit Lot#, ROM+ K2871
[2024-08-25] MEDS: Lactated Ringers 1,000 ML 999 ML IV ×2 (01:05→02:39)
[2024-08-25] MEDS: Ondansetron 4 MG/2 ML Vial IV (01:14)
[2024-08-25] MEDS: Morphine 2 MG/ML Syringe IV (01:14)
[2024-08-25 01:17] LABS: Absolute Neutrophil Count 6.7 X10^3/uL (2.0-7.7); Basophil# 0.04 X10^3/uL; Basophil% 0.5 % (0-1); Eosinophil# 0.14 X10^3/uL; Eosinophils% 1.6 % (0-5); Hematocrit 37.9 % (37-47); Lymphocyte % 5.7 % (19-41); Mean Corp Hgb Conc 34.3 g/dL (32-36); Mean Corpuscular Hgb 29.5 pg (27.0-32.0); Mean Corpuscular Volume 86.1 fL (81-99); Mean Platelet Vol. 10.5 fl (6.2-12.0); Monocyte# 1.27 X10^3/uL; Monocyte% 14.5 % (0-10); NRBC Flagged by Analyzer 0 % (0-5); Neutrophil # 6.73 X10^3/uL (2.7-7.7); Neutrophil % 76.8 % (47-70); POSITIVE DIFFERENTIAL YES; Platelet Count 174 K/mm3 (150-450); RBC Distribution Width CV 13.2 % (11.6-14.6); RBC Distribution Width SD 41.2 fl (35.1-43.9); White Blood Count 8.8 K/mm3 (4.4-11.0)
[2024-08-25] MEDS: Ceftriaxone 1 GM/50 ML BAG IV (02:09)
--- NOTE | 2024-08-25 08:04 | OB.TRI.HP_ITS ---
HPI - General General Date of Admission: 08/25/24 HPI Narrative HOLGER SOUTH, is a 28 y/o @37 weeks 4 days who presents to L&D with sinus drainage, cough, cramping, nausea, vomiting, and pelvic pressure. Orders fo flu/covid/rsv, IV fluids, and zofran. She has a history of a prior section and desires repeat. The nurse reports that her cervix is unchanged from prior exam Maternal Data Information VITALIY Calculator Estimated Delivery Date Method Current WG Current Estimate 09/11/24 Ultrasound #1 37w 4d Other Estimates 09/16/24 LMP (Certain) 36w 6d PFSH PFSH Medical History Seasonal allergies Group B streptococcal infection in mother during Home Medications ?Medication ?Instructions ?Recorded ?Last Taken ?Type PNV 153-FA 400 mcg-om3 35 mg-dha tab PO DAILY pregnanc y 01/28/24 08/24/24 History 25 mg-epa 5 mg-fish oil chew tablet Allergy/AdvReac Type Severity Reaction Status Date / Time No Known Allergies Allergy Verified 08/25/24 00:22 Family History Father Cancer melanoma-remission Aunt Breast cancer Paternal Aunt Breast cancer Paternal Surgical History H/O section Social History adopted: No household members: spouse and children number of children: 1 current occupational status: employed 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, [facility]) out of state: Yes out of country: Yes sexually active: Yes Smoking Status: Never smoker alcohol intake: never substance use type: does not use well-balanced diet: daily or most days caffeine: No eating out: 1-3 times/week during the past year weight has: remained stable what type of physical activity do you participate in: walking frequency: 1-2 times per week duration: 15-30 minutes/day harry/presybeterian: [employer] seatbelt use: always do you feel safe at home: Yes additional social history: Khanh History 2 Elective abortions Hx Para 1 Spontaneous abortions Hx # Term Pregnancies Ectopic pregnancies Hx # Pregnancies Multiple births # of living children 1 Past Pregnancies Del. Date Name GA/Weeks Outcome Route Bth Weight Infant Gen Labor Lgth Anesthesia Del Locatn Provider FOB 08/28/21 Marlys 40 live - full term 6lbs 14oz Female [facility] Dr. Mo Delivery Date: 08/28/21 Last Updated by: Catia Jenkins Emergent section for bradycardia Visit Details Expected Delivery Route/Plan desires repeat c/s with JV Plans Covid status: [] Flu vaccine: [] Tdap vaccine: given Rhogam: na LARC form signed: movement and labor precautions reviewed. Problem list reviewed and updated with the most current plan of care details and appropriate orders placed. Relevant counseling for the gestational age provided. Continue routine care and follow up unless otherwise noted in visit notes/problem list details OB Flowsheet Initial Weight: Not Recorded Date -?-?-?-?-?-?-?-?-?-?-?-?- EGA Weight BP Urine Prot -?-?-?-?-?-?-?-?-?-?-?-?- Glucose FHR FuHt Pres Dilation -?-?-?-?-?-?-?-?-?-?-?-?- Effaced St Visit Note 02/11/24 -?-?-?-?-?-?-?-?-?-?-?-?- 9w 4d 178 lb 88/33 -?-?-?-?-?-?-?-?-?-?-?-?- 175 -?-?-?-?-?-?-?-?-?-?-?-?- KW- CRL 2.68cm n ot cons with dates. VITALIY changed to 09/11. declines NIPT 03/13/24 -?-?-?-?-?-?-?-?-?-?-?-?- 14w 0d 185 lb 8 oz 127/72 Nega tive -?-?-?-?-?-?-?-?-?-?-?-?- Negative 158 -?-?-?-?-?-?-?-?-?-?-?-?- JV- no cramping or spotting. planning rpt cs. has some round ligament pain only. anatomy scan ordered. 04/11/24 -?-?-?-?-?-?-?-?-?-?-?-?- 18w 1d 186 lb 6 oz 123/74 Nega tive -?-?-?-?-?-?-?-?-?-?-?-?- Negative 150 -?-?-?-?-?-?-?-?-?-?-?-?- SM- no vb crmapi ng 05/10/24 -?-?-?-?-?-?-?-?-?-?-?-?- 22w 2d 192 lb 8 oz 121/77 Nega tive -?--?-?-?-?-?-?-?-?-?-?-?- Negative 135 -?-?-?-?-?-?-?-?-?-?-?-?- JV- normal anato my scan results reviewed. request for rpt section sent. No complaints other than allergies. 06/05/24 -?-?-?-?-?-?-?-?-?-?-?-?- 26w 0d 194 lb 100/66 Negative -?-?-?-?-?-?-?-?-?-?-?-?- Negative 180 25 -?-?-?-?-?-?-?-?-?-?-?-?- KW- no vb/lof/cr amping. good fm. glucose today. 06/16/24 -?-?-?-?-?-?-?-?-?-?-?-?- 27w 4d 198 lb 4 oz 111/58 Nega tive -?-?-?-?-?-?-?-?-?-?-?-?- Negative 145 27 -?-?-?-?-?-?-?-?-?-?-?-?- KW- no vb/lof/ct x. good fm. 06/30/24 -?-?-?-?-?-?-?-?-?-?-?-?- 29w 4d 201 lb 113/76 Negative -?-?-?-?-?-?-?-?-?-?-?-?- Negative 135 29 -?-?-?-?-?-?-?-?-?-?-?-?- LC-no vb/ctx/lof . good fm. tdap today. LC-no vb/ctx/lof. good fm.pa ssed glucola. tdap and larc today. 07/14/24 -?-?-?-?-?-?-?-?-?-?-?-?- 31w 4d 205 lb 8 oz 97/53 Nega tive -?-?-?-?-?-?-?-?-?-?-?-?- Negative 135 31 -?--?-?-?-?-?-?-?-?-?-?-?- Smno vb lof good fm nroe gular ctx 07/28/24 -?-?-?-?-?-?-?-?-?-?-?-?- 33w 4d 209 lb 2 oz 84/57 Nega tive -?-?-?-?-?-?-?-?-?-?-?-?- Negative 140 33 -?-?-?-?-?-?-?-?-?-?-?-?- kw- no vb/lof/ct x. good fm. no concerns 08/11/24 -?-?-?-?-?-?-?-?-?-?-?-?- 35w 4d 214 lb 2 oz 119/79 Nega tive -?-?-?-?-?-?-?-?-?-?-?-?- Negative 135 35 -?-?-?-?-?-?-?-?-?-?-?-?- KW- no vb/lof/ct x. good fm. 08/16/24 -?-?-?-?-?-?-?-?-?-?--?-?- 36w 2d 212 lb 2 oz 118/78 Nega tive -?-?-?-?-?-?-?-?-?-?-?-?- Negative 155 36 Cephalic 1 -?-?-?-?-?-?-?-?-?-?-?-?- 70 -2 JV- no lof , vaginal bleeding, or dec fm. gbs collected. ROS Constitutional Constitutional: Reports systems reviewed and no addt'l complaints, except as documented Gastrointestinal Gastrointestinal: Denies bloating, constipation or diarrhea Genitourinary Genitourinary: Reports other Details: Denies vaginal odor, vaginal bleeding, or vaginal discharge ; Denies difficulty urinating or flank pain NST FHR Rate Baby A Baseline: initially 160's-170's, then down to 150's after hydration Variability:: Moderate Accelerations:: 15 x 15 Decelerations:: None NST Reactive:: Yes FHR Category:: Category I Assessment & Plan (1) COVID-19 affecting in third trimester: (2) UTI in : (3) Positive GBS test: COMMENT: treat in labor (4) Obesity affecting : COMMENT: A1C normal (5) Hx of section: COMMENT: pt desires planned c section this , RLTCS scheduled for 09/04 @ 7:15 with JV (6) Supervision of high-risk : COMMENT: PRR, , VITALIY 09/16/24, boy Philip DENVER Marlys, Khanh boy: Philip PLAN: Plan covid test pos UTI likely based on symptoms and UA showing leukocytes, 2 + bacteria, blood, and protein. Leukocytosis is neg on CBC- ceftriaxone 1 gram IV given will send in keflex to continue at home for 10 days dc to home with instruction to hydrate, take tylenol, rest. next week will order a bpp. Charges/Coding Multi Select Codes Urinary/Genital Urinary/Genital CPT Codes: 63246-18 non-stress test Interp
== END 2024-08-25 04:00 | disposition home or self-care (01) ==
LOC: WPOUT 00:07 → WP 00:08
PROVIDERS: Referring Provider Obstetrics & Gynecology; Visit Provider Obstetrics & Gynecology
DX: O98.513 Other viral diseases complicating pregnancy, third trimester (principal); Z3A.37 37 weeks gestation of pregnancy; U07.1 COVID-19; O23.43 Unspecified infection of urinary tract in pregnancy, third trimester; O99.213 Obesity complicating pregnancy, third trimester
CPT/HCPCS: 96365; 96375; 96361; 59025; 59050; 81001; 84112; 85025; 87077; 87086; 87088; 87186; 87631; 99221; G0378; J2405

== ENCOUNTER → 2024-08-29 | Outpatient (CLI) | payer OTHER, SELFPAY ==
--- NOTE | 2024-08-29 16:25 | US_ITS ---
PROCEDURE: ultrasound. 08/29/2024 REASON FOR EXAM: Evaluate growth TECHNIQUE: Sonographic evaluation of the fetus. COMPARISON: None available FINDINGS Single live intrauterine gestation in cephalic presentation. heart rate 137 beats per minute. Maximum vertical pocket 2.7 cm. Amniotic fluid index 9.5 cm. The placenta is posterior, grade 3. No retroplacental fluid collection or gross evidence of placenta previa. Cervical length not evaluated. No gross anomalies are demonstrated. Biparietal diameter 9.4 cm, at the 78th percentile. Head circumference 34.7 cm, at the 78th percentile. Abdominal circumference 34.6 cm, at the 78th percentile. Femur length 7.5 cm, at the 59th percentile. Estimated weight 3538 g +/-531 g (74th percentile). Facial features and cord insertion, as well as three-vessel cord are not evaluated or confirmed. Cardiac anatomy is limited. US/OB Limited With Biometrics IMPRESSION: Single live intrauterine gestation in cephalic presentation, with estimated ges tational age of 38 weeks, 6 days. Estimated date of confinement 09/06/2024. No gross anomalies are demonstrated. Amniotic fluid index 9.5 cm. Reading Location: [facility]
--- NOTE | 2024-08-29 16:25 | US_ITS ---
PROCEDURE: Ultrasound biophysical profile without nonstress test REASON FOR EXAM: well-being TECHNIQUE: Sonographic evaluation of the fetus. COMPARISON: None available FINDINGS: Single live intrauterine gestation in cephalic presentation. heart rate 133 beats per minute. Largest amniotic fluid pocket 4.8 cm. Amniotic fluid index 13.2 cm. The placenta is posterior, without definite retroplacental fluid collection or evidence of placenta previa. anatomy not well evaluated on this study. Biophysical profile: Breathing movements: 2/2 Gross body movements: 2/2 tone: 2/2 Amniotic fluid volume: 2/2. US/Biophysical Prof W/O Non Stres IMPRESSION: Single live intrauterine gestation in cephalic presentation. Biophysical profile score of 8/8. Posterior placenta. heart rate 133 beats per minute. Amniotic fluid index 13.2 cm. [facility]
== END | disposition home or self-care (01) ==
LOC: US 16:22
PROVIDERS: Referring Provider Obstetrics & Gynecology; Visit Provider Obstetrics & Gynecology
DX: O98.513 Other viral diseases complicating pregnancy, third trimester (principal); U07.1 COVID-19; O99.210 Obesity complicating pregnancy, unspecified trimester; Z3A.00 Weeks of gestation of pregnancy not specified
CPT/HCPCS: 76816; 76819

== ENCOUNTER 2024-09-04 05:15 | Inpatient (IN) | payer OTHER, SELFPAY ==
[2024-09-04] VITALS (20 sets, daily range): BP systolic 85–132; BP diastolic 40–94; PULSE 79–110; RESP 16–19; TEMP 36.3–36.8; O2SAT 92–100; BMI 38.9
[2024-09-04] MEDS: Lactated Ringers 1,000 ML 999 ML IV (05:30)
[2024-09-04 05:37] LABS: Absolute Lymphocyte Count 1.86 X10^3/uL (0.83-4.51); Basophil# 0.04 X10^3/uL; Basophil% 0.5 % (0-1); Eosinophil# 0.47 X10^3/uL; Eosinophils% 5.8 % (0-5); Hematocrit 40.1 % (37-47); Hemoglobin 13.7 g/dL (12.0-15.0); Lymphocyte # 1.86 X10^3/ul (0.83-4.51); Mean Corp Hgb Conc 34.2 g/dL (32-36); Mean Corpuscular Hgb 29.5 pg (27.0-32.0); Mean Corpuscular Volume 86.2 fL (81-99); Mean Platelet Vol. 10.7 fl (6.2-12.0); Monocyte# 0.61 X10^3/uL; Monocyte% 7.6 % (0-10); NRBC Flagged by Analyzer 0 % (0-5); Neutrophil # 5.03 X10^3/uL (2.7-7.7); Neutrophil % 62.4 % (47-70); Platelet Count 226 K/mm3 (150-450); Red Blood Count 4.65 M/mm3 (4.2-5.4); White Blood Count 8.1 K/mm3 (4.4-11.0)
[2024-09-04] MEDS: Acetaminophen 500 MG Tablet 1000 MG PO ×3 (05:56→17:35)
[2024-09-04 06:21] LABS: Syphilis Antibodies Nonreactive (Nonreactive)
[2024-09-04] MEDS: Lactated Ringers 1,000 ML 150 ML IV (06:34)
[2024-09-04] MEDS: Sodium Citrate/Citric Acid 30 ML UDC PO (06:35)
--- NOTE | 2024-09-04 07:05 | HP.PCM.OB_ITS ---
HPI - General General Date of Admission: 09/04/24 HPI Narrative HOLGER SOUTH, is a 28 y/o who presents to L&D at 39 weeks for a repeat section. 2 weeks ago she was here for covFedCyber support. She states that last wednesday she tested negative. She denies any complaints today. Maternal Data Information VITALIY Calculator Estimated Delivery Date Method Current WG Current Estimate 09/11/24 Ultrasound #1 39w 0d Other Estimates 09/16/24 LMP (Certain) 38w 2d PFSH PFSH Medical History Seasonal allergies Group B streptococcal infection in mother during Home Medications ?Medication ?Instructions ?Recorded ?Last Taken ?Type PNV 153-FA 400 mcg-om3 35 mg-dha 1 tab PO DAILY pregna ncy 01/28/24 08/24/24 History 25 mg-epa 5 mg-fish oil chew tablet ondansetron 4 mg disintegrating 4 mg PO Q6H PRN nausea and 08/25/24 Unknown Rx tablet vomiting #30 tabs Allergy/AdvReac Type Severity Reaction Status Date / Time No Known Allergies Allergy Verified 09/04/24 05:15 Family History Father Cancer melanoma-remission Aunt Breast cancer Paternal Aunt Breast cancer Paternal Surgical History H/O section Social History adopted: No household members: spouse and children number of children: 1 current occupational status: employed 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[employer] pets and animals: Yes (avoid litter box) pets and animals: cat(s) history of recent travel: Yes (November Cruise to [facility], [facility], [facility]) out of state: Yes out of country: Yes sexually active: Yes Smoking Status: Never smoker alcohol intake: never substance use type: does not use well-balanced diet: daily or most days caffeine: No eating out: 1-3 times/week during the past year weight has: remained stable what type of physical activity do you participate in: walking frequency: 1-2 times per week duration: 15-30 minutes/day harry/restoration: Confucianism seatbelt use: always do you feel safe at home: Yes additional social history: Khanh History 2 Elective abortions Hx Para 1 Spontaneous abortions Hx # Term Pregnancies Ectopic pregnancies Hx # Pregnancies Multiple births # of living children 1 Past Pregnancies Del. Date Name GA/Weeks Outcome Route Bth Weight Gen Labor Lgth Anesthesia Del Lanatn Provider FOB 08/28/21 Marlys 40 live - full term 6lbs 14oz Female [facility] Dr. Esteban Khanh Delivery Date: 08/28/21 Last Updated by: Catia Jenkins Emergent section for bradycardia Visit Details Expected Delivery Route/Plan desires repeat c/s with JV Plans Covid status: [] Flu vaccine: [] Tdap vaccine: given Rhogam: na LARC form signed: movement and labor precautions reviewed. Problem list reviewed and updated with the most current plan of care details and appropriate orders placed. Relevant counseling for the gestational age provided. Continue routine care and follow up unless otherwise noted in visit notes/problem list details OB Flowsheet Initial Weight: Not Recorded Date -?-?-?-?-?-?-?-?-?-?-?-?- EGA Weight BP Urine Prot -?-?-?-?-?-?-?-?-?-?-?-?- Glucose FHR FuHt Pres Dilation -?-?-?-?-?-?-?-?-?-?-?-?- Effaced St Visit Note 02/11/24 -?-?-?-?-?-?-?-?-?-?-?-?- 9w 4d 178 lb 88/33 -?-?-?-?-?-?-?-?-?-?-?-?- 175 -?-?-?-?-?-?-?-?-?-?-?-?- KW- CRL 2.68cm n ot cons with dates. VITALIY changed to 09/11. declines NIPT 03/13/24 -?-?-?-?-?-?-?-?-?-?-?-?- 14w 0d 185 lb 8 oz 127/72 Nega tive -?-?-?-?-?-?-?-?-?-?-?-?- Negative 158 -?-?-?-?-?-?-?-?-?-?-?-?- JV- no cramping or spotting. planning rpt cs. has some round ligament pain only. anatomy scan ordered. 04/11/24 -?-?-?-?-?-?-?-?-?-?-?-?- 18w 1d 186 lb 6 oz 123/74 Nega tive -?-?-?-?-?-?-?-?-?-?-?-?- Negative 150 -?-?-?-?-?-?-?-?-?-?-?-?- SM- no vb crmapi ng 05/10/24 -?-?-?-?-?-?-?-?-?-?-?-?- 22w 2d 192 lb 8 oz 121/77 Nega tive -?-?-?-?-?-?-?-?-?-?-?-?- Negative 135 -?-?-?-?-?-?-?-?-?-?-?-?- JV- normal anato my scan results reviewed. request for rpt section sent. No complaints other than allergies. 06/05/24 -?-?-?-?-?-?-?-?-?-?-?-?- 26w 0d 194 lb 100/66 Negative -?-?-?-?-?-?-?-?-?-?-?-?- Negative 180 25 -?-?-?-?-?-?-?-?-?-?-?-?- KW- no vb/lof/cr amping. good fm. glucose today. 06/16/24 -?-?-?-?-?-?-?-?-?-?-?-?- 27w 4d 198 lb 4 oz 111/58 Nega tive -?-?-?-?-?-?-?-?-?-?-?-?- Negative 145 27 -?-?-?-?-?-?-?-?-?-?-?-?- KW- no vb/lof/ct x. good fm. 06/30/24 -?-?-?-?-?-?-?-?-?-?-?-?- 29w 4d 201 lb 113/76 Negative -?-?-?-?-?-?-?-?-?-?-?-?- Negative 135 29 -?-?-?-?-?-?-?-?-?-?-?-?- LC-no vb/ctx/lof . good fm. tdap today. LC-no vb/ctx/lof. good fm.pa ssed glucola. tdap and larc today. 07/14/24 -?-?-?-?-?-?-?-?-?-?-?-?- 31w 4d 205 lb 8 oz 97/53 Nega tive -?-?-?-?-?-?-?-?-?-?-?-?- Negative 135 31 -?-?-?-?-?-?-?-?-?-?-?-?- Smno vb lof good fm nroe gular ctx 07/28/24 -?-?-?-?-?-?-?-?-?-?-?-?- 33w 4d 209 lb 2 oz 84/57 Nega tive -?-?-?-?-?-?-?-?-?-?-?-?- Negative 140 33 -?-?-?-?-?-?-?-?-?-?-?-?- kw- no vb/lof/ct x. good fm. no concerns 08/11/24 -?-?-?-?-?-?-?-?-?-?-?-?- 35w 4d 214 lb 2 oz 119/79 Nega tive -?-?-?-?-?-?-?-?-?-?-?-?- Negative 135 35 -?-?-?-?-?-?-?-?-?-?-?-?- KW- no vb/lof/ct x. good fm. 08/16/24 -?-?-?-?--?-?-?-?-?-?-?-?- 36w 2d 212 lb 2 oz 118/78 Nega tive -?-?-?-?-?-?-?-?-?-?-?-?- Negative 155 36 Cephalic 1 -?-?-?-?-?-?-?-?-?-?-?-?- 70 -2 JV- no lof , vaginal bleeding, or dec fm. gbs collected. 08/30/24 -?-?-?-?-?-?-?-?-?-?-?-?- 38w 2d 214 lb 4 oz 120/68 Nega tive -?-?-?-?-?-?-?-?-?-?-?-?- Negative 150 38 Cephalic -?-?-?-?-?-?-?-?-?-?-?-?- SM- no vb lof go od fm o nreuglar ctx preop cs reviewed consent signed ROS Constitutional Constitutional: Denies change in weight, fatigue, fever(s), headache(s), poor appetite or weakness Eyes Eyes: Denies blurry vision, change in vision, seeing flashes or spots in vision ENT HEENT: Denies dizziness, headache(s), loss taste/smell or sore throat Cardiovascular Cardiovascular: Denies chest pain, dizziness, dyspnea, irregular heart rhythm, leg edema, palpitations, rapid heart rate or vomiting Respiratory/Chest Respiratory/Chest: Denies chest tightness, cough, dyspnea or breast pain Gastrointestinal Gastrointestinal: Denies abdominal pain, anorexia, constipation, cramping, diarrhea, hemorrhoids, vomiting or weight changes Genitourinary Genitourinary: Denies dysuria, flank pain, genital lesions, genital pain, urinary frequency or urinary urgency Musculoskeletal Musculoskeletal: Denies back pain, difficulty walking, joint pain, limited range of motion, muscle cramps or numbness Integumentary Integumentary: Denies lesions or unusual bruising Neurologic Neurologic: Denies abnormal movements, abnormal speech, dizziness, numbness, seizure-like activity or syncope Psychiatric Psychiatric: Denies anxiety, behavioral changes, change in appetite, change in libido, cognitive impairment, confusion, depression, difficulty concentrating, hallucinations or suicidal thoughts Endocrine Endocrinology: Denies excessive sweating, polydipsia or polyuria Hematologic/Lymphatic Hematologic/Lymphatic: Denies easy bleeding, easy bruising or lymphadenopathy Allergic/Immunologic Allergic/Immunologic: Denies itchy eyes, lip swelling, seasonal rhinorrhea, rhinitis, throat swelling, tongue swelling, eczemia, wheezing or asthma Vital Signs Vital Signs Vital Signs: 09/04/24 05:41 09/04/24 05:41 09/04/24 05:41 Temperature Temperature Source Pulse Rate 79 Respiratory Rate Blood Pressure 106/68 Blood Pressure Mean BP Systolic 106 BP Diastolic 68 Blood Pressure Source Blood Pressure Position Blood Pressure Location Pulse Ox 92 Oxygen Delivery Method 09/04/24 05:41 09/04/24 05:41 09/04/24 05:41 Temperature 97.4 F L Temperature Source Temporal Pulse Rate Respiratory Rate 16 Blood Pressure Blood Pressure Mean BP Systolic BP Diastolic Blood Pressure Source Blood Pressure Position Blood Pressure Location Pulse Ox Oxygen Delivery Method 09/04/24 06:00 Temperature 97.4 F L Temperature Source Temporal Pulse Rate 79 Respiratory Rate 18 Blood Pressure 106/68 Blood Pressure Mean 80 BP Systolic BP Diastolic Blood Pressure Source Monitor Blood Pressure Position Semi-Fowlers Blood Pressure Location Right Arm Pulse Ox 97 Oxygen Delivery Method Room Air Weight Weight: 213 lb Body Mass Index (BMI) 38.9 Physical Exam Const alert, oriented x3, no apparent distress and healthy appearing General Appearance: cooperative; Negative for anxious HEENT normocephalic Face and Sinus: normal facial exam Eyes EOMs intact bilaterally and no scleral icterus General Eye: normal appearance of both eyes Neck full ROM and supple Lymph Lymphatic: no lymphadenopathy noted Chest Chest: abnormal inspection of the chest Resp normal respiratory effort Effort and Inspection: able to speak in complete sentences Cardio regular rate GI soft to palpation and non-tender Inspection: gravid Palpation: soft; Negative for tender Back/Spine no CVA tenderness Extremity normal to inspection, full ROM and no clubbing, cyanosis or edema General Extremity: Negative for calf tenderness or edema Skin Lesions: no lesions Rashes: no rashes Psych mental status grossly normal Labs Labs Labs: Blood Type B POSITIVE Antibody Screen NEGATIVE Hct 40.1 % (37-47) Hgb 13.7 g/dL (12.0-15.0) Obstetrics Ultrasound Syphilis Total Ab Nonreactive (Nonreactive) Rubella IgG Antibody Reactive (Nonreactive) Hep Bs Antigen Non-Reactive (Nonreactive) Hepatitis C Antibody Non-Reactive (Nonreactive) Chlamydia DNA (VISHAL) Negative (Negative) N.gonorrhoeae DNA (VISHAL) Negative (Negative) HIV 1&2 Antibody Non-Reactive (Nonreactive) Glucose 1 Hr 50 gm 97 mg/dL (70-140) Assessment & Plan (1) UTI in : (2) COVID-19 affecting in third trimester: (3) Positive GBS test: COMMENT: treat in labor (4) Abnormal Pap smear of cervix: COMMENT: Asc-us on pap HPV neg. repeat in 3 years. (5) Obesity affecting : COMMENT: A1C normal (6) Hx of section: COMMENT: pt desires planned c section this , RLTCS scheduled for 09/04 @ 7:15 with JV (7) Supervision of high-risk : COMMENT: PRR, , VITALIY 09/16/24, boy Philip Frankel, Khanh boy: Philip (8) : QUALIFIERS: Weeks of gestation: 38 weeks Qualified Code(s): Z3A.38 - 38 weeks gestation of COMMENT: declines genetic & carrier testing
--- NOTE | 2024-09-04 07:07 | DCINST_ITS ---
Discharge Instructions Follow Up Care Test Results: Test results from this visit will be discussed in further detail at your follow- up appointment, if applicable. Discharge Plan Admission Admit Date/Time: 09/04/24 05:15 Attending Provider: Jessica Esteban Primary Care Provider: Care Physician,Shi Primary Discharge Orders/Prescriptions Prescriptions: No Action PNV no.[id number] 400 mcg-35 mg- 25 mg-5 mg tablet,chewable 1 tab PO DAILY ondansetron 4 mg tablet,disintegrating 4 mg PO Q6H PRN (Reason: nausea and vomiting) Qty: 30 0RF Referrals / Follow Up: Care Physician,No Primary [Primary Care Provider] -
--- NOTE | 2024-09-04 07:10 | DCINST_ITS ---
Discharge Instructions Diet Discharge Diet: No restrictions DC O2, CPAP, BIPAP needs Home O2 Discharge instructions: No Dressing / Incision Discharge Activity: May Not Drive (for 2 weeks or while taking narcotic pain medications.), May Shower and May Take a Tub Bath (in 7 days.) May resume sexual activity in: 4-6 weeks Weight Bearing Status: Full weight bearing Lifting Restrictions: 20 pounds Dressing / Incision Call your doctor if your incision/area has: Continuous Slow Oozing, Sudden Increased Bleeding, Increased Pain/ Swelling, Increased Redness and Foul Smelling Discharge Call your doctor if you observe: Fever of 101 or Higher and Using more than 1 pad per hour Suture Line Care: Avoid Pulling/Pushing and Avoid Pinching/Bending Cleanse incision/area with: Soap & Water and Keep Dressing Clean & Dry Follow Up Care Please Follow Up With: Jessica Esteban DO When: Call [phone] to make an appointment for an incision check in 1-2 weeks. Test Results: Test results from this visit will be discussed in further detail at your follow- up appointment, if applicable. Discharge Plan Admission Admit Date/Time: 09/04/24 05:15 Primary Reason for Your Visit: section Attending Provider: Jessica Esteban Primary Care Provider: Shi Dos Santos Primary Discharge Orders/Prescriptions Prescriptions: New ibuprofen 800 mg tablet 800 mg PO Q8H PRN (Reason: pain) Qty: 30 0RF oxycodone-acetaminophen [Percocet] 5-325 mg tablet 1 tab PO Q4H PRN (Reason: pain) 7 Days Qty: 20 0RF Rx Instructions: 1-2 tabs q 4 hrs as needed for pain No Action PNV no.[id number] 400 mcg-35 mg- 25 mg-5 mg tablet,chewable 1 tab PO DAILY ondansetron 4 mg tablet,disintegrating 4 mg PO Q6H PRN (Reason: nausea and vomiting) Qty: 30 0RF Referrals / Follow Up: Shi Dos Santos Primary [Primary Care Provider] -
[2024-09-04] MEDS: Cefazolin 2 GM in Syringe IV (07:38)
--- NOTE | 2024-09-04 08:23 | OP.PCM_ITS ---
Assessment & Plan (1) UTI in : (2) COVID-19 affecting in third trimester: (3) Positive GBS test: COMMENT: treat in labor (4) Abnormal Pap smear of cervix: COMMENT: Asc-us on pap HPV neg. repeat in 3 years. (5) Hx of section: COMMENT: pt desires planned c section this , RLTCS scheduled for 09/04 @ 7:15 with JV (6) Supervision of high-risk : COMMENT: PRR, , VITALIY 09/16/24, boy Philip Frankel, Khanh boy: Philip (7) : QUALIFIERS: Weeks of gestation: 38 weeks Qualified Code(s): Z3A.38 - 38 weeks gestation of COMMENT: declines genetic & carrier testing Maternal Data Information VITALIY Calculator Estimated Delivery Date Method Current WG Current Estimate 09/11/24 Ultrasound #1 39w 0d Other Estimates 09/16/24 LMP (Certain) 38w 2d Final VITALIY: 09/11/24 Final VITALIY Source: US <20 weeks Operative Report (OB) Cecarean Details Procedure Type: low transverse Date of Procedure: 09/04/24 Procedure Start Time: 07:39 Procedure Stop Time: 08:14 Time of Delivery: 07:45 Pre-Operative Diagnosis: Repeat Elective Post-Operative Diagnosis: Same as Pre-operative diagnosis Type of Anesthesia: Spinal Antibiotic Given: Ancef 2 grams IV x1 Drain: Snow to straight drain Estimated Blood Loss: 400c Findings Description of surgery: The patient is a 28 y/o @ 39 weeks presented for repeat . Spinal anesthesia was placed without difficulty. Snow catheter was placed. The patient was placed in the dorsal supine position with leftward tilt. Patient was prepped and draped in the normal sterile fashion. Pfannenstiel skin incision was made with the scalpel and carried through to the underlying layer of fascia with the scalpel. Fascia was nicked in the midline and the incision extended laterally. The rectus bellies were dissected off superiorly and inferiorly with out complication both sharply and bluntly. The peritoneum was entered digitally. The incision was stretched and a low transverse uterine incision was made with the scalpel. The 's head was delivered atraumatically followed by the anterior and posterior shoulders without complication the rest of the infant delivered. The cord was clamped and cut and the infant was handed off to awaiting nurse. The placenta was delivered spontaneously immediately following and was noted to be intact and have a three- vessel cord. The uterus was exteriorized cleared of all clots and debris, and the incision was closed in a double layer closure using #1 Vicryl and #1 Monocryl. The ovaries and fallopian tubes were noted to be within normal limits. The uterus was returned to the maternal abdomen and gutters were cleared of all clots and debris. The peritoneum was closed with 3-0 Monocryl in a running fashion. Fascia was closed with 0 PDS in a running fashion. Subcutaneous tissue was copiously irrigated and the skin was closed with 3-0 Monocryl in a subcuticular fashion. Mepilex dressing was applied without complication. Patient was taken to recovery in stable condition. It was discussed with the patient that based on the clinical information obtained during this encounter, combined with her history, at this time I would recommend for future deliveries if further pregnancies are desired. Surgical findings: viable male Melo Presentation: Vertex Amniotic Fluid Description: Clear Placental Delivery Description: Manual Removal Specimen collected: No Cord Vessel Description: 3 Vessels Cord Entanglement: None Infant A gender: Male (1 minute): 8 (5 minute): 9 Delayed Cord Clamping: Yes Wide Area Network Systems Administrator silk screen printer machine: Yes Solution Mixer: Hernesto Alvarez Tasks completed by welder first class: Closing, Hemostasis: Clamp and Retracting Additional virtual assistant for advertisers?: No Complications Complications: No Multi Select Codes Urinary/Genital Urinary/Genital CPT Codes: 44733 Delivery [facility]
[2024-09-04] MEDS: Lactated Ringers 1,000 ML 100 ML IV ×2 (08:30→12:04)
[2024-09-04] MEDS: Oxytocin 15 Units/NS 250ml 15 UNITS/250 ML IV.SOLN 83 UNITS IV (08:35)
[2024-09-04] MEDS: Ketorolac 30 MG/ML Syringe IV ×3 (09:08→20:27)
[2024-09-04] MEDS: Senna/Docusate Sodium 1 Tablet PO (10:28)
[2024-09-04] MEDS: 0.9% Saline Lock 10 ML Syringe IV ×2 (15:31→20:27)
[2024-09-04] MEDS: Enoxaparin 40 MG/0.4 ML Syringe SC (20:26)
[2024-09-05 00:05] VITALS: BP 118/63; PULSE 88; RESP 18; TEMP 36.4; O2SAT 97
[2024-09-05] MEDS: Acetaminophen 500 MG Tablet 1000 MG PO ×3 (00:10→13:38)
[2024-09-05] MEDS: Ketorolac 30 MG/ML Syringe IV (02:55)
[2024-09-05] MEDS: 0.9% Saline Lock 10 ML Syringe IV (02:55)
[2024-09-05 04:25] VITALS: BP 94/54; PULSE 77; RESP 17; TEMP 36.4; O2SAT 98
[2024-09-05 04:46] LABS: Hematocrit 33.7 % (37-47); Hemoglobin 11.3 g/dL (12.0-15.0); Mean Corp Hgb Conc 33.5 g/dL (32-36); Mean Corpuscular Hgb 29.6 pg (27.0-32.0); Mean Corpuscular Volume 88.2 fL (81-99); Mean Platelet Vol. 10.6 fl (6.2-12.0); Platelet Count 192 K/mm3 (150-450); RBC Distribution Width CV 13.2 % (11.6-14.6); RBC Distribution Width SD 42.8 fl (35.1-43.9); Red Blood Count 3.82 M/mm3 (4.2-5.4); White Blood Count 10.6 K/mm3 (4.4-11.0)
--- NOTE | 2024-09-05 07:45 | PCM.PN.OB ---
Subjective Subjective Patient doing well without complaints. Tolerating PO. Ambulating and voiding without difficulty. Feeding well. Denies chest pain, shortness of breath, calf pain/swelling, fevers, chills, lightheadedness. Objective Data Objective Data Vital Signs: Vital Signs Temp Pulse Resp BP Pulse Ox O2 Del Method 97.5 F L 77 17 94/54 L 98 Room Air 09/05/24 04:25 09/05/24 04:25 09/05/24 04:25 09/05/24 04:25 09/05/24 04:25 09/05/24 04:25 Oxygen Delivery Method Room Air Weight: 213 lb Body Mass Index (BMI) 38.9 Intake & Output: Intake and Output for Last 24 Hours 09/03/24 09/04/24 09/05/24 23:59 23:59 23:59 Intake Total 2615.84 / 2615.84 Output Total 2500 / 2800 300 / 300 Balance 115.84 / -184.16 -300 / -300 Lab / Micro Data Attestation: I reviewed the patient's lab results. 09/05/24 04:30 Labs: Laboratory Results - last 24 hr 09/05/24 04:30: WBC 10.6, RBC 3.82 L, Hgb 11.3 L, Hct 33.7 L, MCV 88.2, MCH 29.6, MCHC 33.5, RDW Std Deviation 42.8, RDW Coeff of Albert 13.2, Plt Count 192, MPV 10.6 ROS Constitutional Constitutional: Reports systems reviewed and no addt'l complaints, except as documented; Denies anorexia or headache(s) Cardiovascular Cardiovascular: Reports systems reviewed and no addt'l complaints, except as documented; Denies dizziness, dyspnea, nausea or tachypnea Respiratory/Chest Respiratory/Chest: Reports systems reviewed and no addt'l complaints, except as documented; Denies cough, dyspnea, shortness of breath at rest or tachypnea Gastrointestinal Gastrointestinal: Reports systems reviewed and no addt'l complaints, except as documented; Denies abdominal pain, constipation or nausea Genitourinary Genitourinary: Reports systems reviewed and no addt'l complaints, except as documented; Denies burning urination, difficulty urinating, dysuria, urinary frequency or urinary incontinence Musculoskeletal Musculoskeletal: Reports systems reviewed and no addt'l complaints, except as documented Integumentary Integumentary: Reports systems reviewed and no addt'l complaints, except as documented Neurologic Neurologic: Reports systems reviewed and no addt'l complaints, except as documented; Denies abnormal speech, dizziness or headache(s) Psychiatric Psychiatric: Reports systems reviewed and no addt'l complaints, except as documented Endocrine Endocrinology: Reports systems reviewed and no addt'l complaints, except as documented Hematologic/Lymphatic Hematologic/Lymphatic: Reports systems reviewed and no addt'l complaints, except as documented Physical Exam Const alert, oriented x3 and no apparent distress Neck full ROM Resp normal respiratory effort, normal air movement and no retractions Effort and Inspection: able to speak in complete sentences and symmetric chest movement GI soft to palpation Inspection: incision intact Bladder / Kidney Exam: bladder normal to palpation Uterus Palpation: uterus fundus firm Extremity normal to inspection and full ROM Psych mental status grossly normal, thought process normal and cooperative Assessment & Plan (1) Status post delivery: PLAN: s/p LTCS PPD # 1 1. routine post care 2. breast feeding- support given 3. rh positive 4. rubella immune 5. Discharge home (2) Positive GBS test: COMMENT: treat in labor (3) Abnormal Pap smear of cervix: COMMENT: Asc-us on pap HPV neg. repeat in 3 years. (4) Obesity affecting : COMMENT: A1C normal (5) Hx of section: COMMENT: pt desires planned c section this , RLTCS scheduled for 09/04 @ 7:15 with JV (6) Supervision of high-risk : COMMENT: PRR, , VITALIY 09/16/24, boy Quintontushar Marquezla, Khanh boy: Philip (7) : QUALIFIERS: Weeks of gestation: 38 weeks Qualified Code(s): Z3A.38 - 38 weeks gestation of COMMENT: declines genetic & carrier testing Charges/Coding Multi Select Codes Urinary/Genital Urinary/Genital CPT Codes: No Charge
[2024-09-05 07:48] VITALS: BP 118/62; PULSE 79; RESP 17; TEMP 36.4
[2024-09-05 13:09] VITALS: TEMP 36.5
[2024-09-05 13:12] VITALS: BP 122/70; PULSE 80; RESP 18; TEMP 36.5
== END 2024-09-05 15:30 | disposition home or self-care (01) | DRG 788 ==
PROVIDERS: Admitting Provider Obstetrics & Gynecology; Referring Provider Obstetrics & Gynecology; Visit Provider Obstetrics & Gynecology
PROC: 10D00Z1 Extraction of Products of Conception, Low, Open Approach (ICD-10-PCS; CPT 59514; principal; 2024-09-04 07:00)
DX: O34.211 Maternal care for low transverse scar from previous cesarean delivery (principal); E66.9 Obesity, unspecified; O99.214 Obesity complicating childbirth; O99.824 Streptococcus B carrier state complicating childbirth; Z3A.39 39 weeks gestation of pregnancy; Z37.0 Single live birth; Z86.16 Personal history of COVID-19; Z87.440 Personal history of urinary (tract) infections
CPT/HCPCS: 59025; 85025; 85027; 86780; 86850; 86900; 86901; 99221; A4216; G0378; J2405

== ENCOUNTER → 2025-04-25 | Outpatient (CLI) | payer OTHER, SELFPAY ==
[2025-04-30 16:09] LABS: HPV APTIMA, High Risk Negative (Negative)
== END | disposition home or self-care (01) ==
LOC: LABSPEC 11:52
PROVIDERS: Visit Provider Nurse Practitioner Family
DX: R87.619 Unspecified abnormal cytological findings in specimens from cervix uteri (principal)
CPT/HCPCS: 87624; 88175; G0145